=== PATIENT | female | born 1990 | race Caucasian/White ===

== ENCOUNTER 2020-12-16 10:24 | Emergency (ER) | payer OTHER ==
[~2020-12-16] VITALS: Ht 152.4 cm; Wt 81.6 kg
[2020-12-16 10:24] VITALS: BP 112/66
--- NOTE | 2020-12-16 10:24 | NUR ---
OSIRIS WOOD FROM HOME
--- NOTE | 2020-12-16 11:17 | NUR ---
PT W/C ASSISTED TO BED 3
--- NOTE | 2020-12-16 11:17 | NUR ---
Patient ambulated to bed 3. RN evaluating the patient at bedside.
--- NOTE | 2020-12-16 11:20 | NUR ---
30 Y/O FEMALE BIBA FROM HOME C/O LOWER BACK PAIN. PT BENT OVER, COUGHED, AND FELT A "POP" AND NOW IS C/O 9/10 LOWER BACK PAIN. DENIES FALLING. PMH:ASTHMA, CHRONIC LOWER BACK PAIN X6 MONTHS NKDA
[2020-12-16] MEDS ORDERED: ONDANSETRON 4 MG/2 ML VIAL IVP ONE (11:40)
[2020-12-16] MEDS ORDERED: fentaNYL citrate 0.05 MG/ML VIAL IVP ONE (11:40)
[2020-12-16] MEDS ORDERED: KETOROLAC 30 MG/ML VIAL IVP ONE (11:40)
[2020-12-16] MEDS ORDERED: NAPR-1717 PO (12:46)
[2020-12-16] MEDS ORDERED: ACET-8386 PO (12:46)
[2020-12-16 13:30] VITALS: BP 112/66
--- NOTE | 2020-12-16 13:31 | NUR ---
Patient discharged with v/s stable. Written and verbal after care instructions given ACUTE BACK PAIN and explained. Patient alert, oriented and verbalized understanding of instructions. Wheel Chair Assisted with to car. All questions addressed prior to discharge. ID band removed. Patient advised to follow up with PMD. Rx of NAPROXEN 500MG PO BID PRN PAIN, AND NORCO 5MG-325MG PO Q6-8H PRN PAIN given. Patient educated on indication of medication including possible reaction and side effects. Opportunity to ask questions provided and answered.
== END 2020-12-16 13:31 | disposition home or self-care (01) ==
LOC: MED 10:24
DX: M54.5 Low back pain (principal); J45.909 Unspecified asthma, uncomplicated; Z79.899 Other long term (current) drug therapy
CPT/HCPCS: 81025; 96374; 96375; 99284; J1885; J2405; J3010

== ENCOUNTER 2023-03-15 11:44 | Emergency (ER) | payer BC, OTHER ==
[~2023-03-15] VITALS: Ht 152.4 cm; Wt 81.6 kg
[~2023-03-15 11:44] MED LIST: ACET-8905 PO; NAPR-1717 PO
[2023-03-15 11:58] VITALS: BP 109/38; PULSE 62; RESP 18; TEMP 98.3; O2SAT 97
[2023-03-15] MEDS ORDERED: DEXAMETHASONE 4 MG/ML VIAL PO ONE (13:00)
[2023-03-15 13:24] LABS: BASOPHILS # (AUTO) 0.1 K/uL (0.00-0.22); BASOPHILS % (AUTO) 0.8 % (0.0-2.0); EOSINOPHILS # (AUTO) 0.4 K/uL (0-0.4); EOSINOPHILS % (AUTO) 3.7 % (0.0-4.0); HEMATOCRIT 39.8 % (36-48); HEMOGLOBIN 13.6 g/dL (12.0-16.0); LYMPHOCYTES # (AUTO) 3.2 K/uL (2.5-16.5); LYMPHOCYTES % (AUTO) 33.7 % (20.5-51.1); MEAN CORPUSCULAR HEMOGLOBIN 31 pg (27-31); MEAN CORPUSCULAR HGB CONC 34 g/dL (33-37); MEAN CORPUSCULAR VOLUME 90.6 fL (80-94); MONOCYTES # (AUTO) 0.5 K/uL (0.8-1.0); MONOCYTES % (AUTO) 4.7 % (1.7-9.3); NEUTROPHILS # (AUTO) 5.5 K/uL (1.8-7.7); NEUTROPHILS % (AUTO) 57.1 % (42.2-75.2); PLATELET COUNT (AUTO) 250 K/uL (140-450); RED BLOOD CELL COUNT(AUTO) 4.39 MIL/uL (4.20-5.40); RED CELL DISTRIBUTION WIDTH 13.4 % (11.6-13.7); WHITE BLOOD COUNT (AUTO) 9.6 K/uL (4.8-10.8)
[2023-03-15 13:40] LABS: ALANINE AMINOTRANSFERASE 26 U/L (12-78); ALBUMIN 3.7 g/dL (3.4-5.0); ALKALINE PHOSPHATASE 55 U/L (50-136); ASPARTATE AMINOTRANSFERASE 12 U/L (15-37); CALCIUM 8.9 mg/dL (8.5-10.1); CARBON DIOXIDE 30.3 mmol/L (21-32); CHLORIDE 104 mmol/L (98-107); CREATININE 0.8 mg/dL (0.6-1.3); GFR ARICAN-AMERICAN 106 mL/min (>90); GFR NON ARICAN-AMERICAN 87 mL/min (>90); GLUCOSE 97 mg/dL (74-106); POTASSIUM 4.3 mmol/L (3.5-5.1); SODIUM SERUM 141 mmol/L (136-145); TOTAL BILIRUBIN 0.3 mg/dL (0.0-1.0); TOTAL PROTEIN, SERUM 7.4 g/dL (6.4-8.2); UREA NITROGEN, BLOOD 11 mg/dL (7-18)
[2023-03-15] MEDS ORDERED: BUDE1AER2 IH (13:58)
[2023-03-15 14:50] VITALS: BP 116/45; PULSE 68; RESP 18; TEMP 98.3; O2SAT 97
== END 2023-03-15 14:52 | disposition home or self-care (01) ==
LOC: MED 11:44
DX: R07.9 Chest pain, unspecified (principal); R06.02 Shortness of breath; J45.909 Unspecified asthma, uncomplicated; Z79.899 Other long term (current) drug therapy; Z79.1 Long term (current) use of non-steroidal anti-inflammatories (NSAID)
CPT/HCPCS: 36415; 71045; 80053; 84484; 85025; 85379; 93005; 99285; J1100

== ENCOUNTER 2023-06-07 09:14 | Emergency (ER) | payer BC, OTHER ==
[~2023-06-07] VITALS: Ht 167.6 cm; Wt 81.6 kg
[~2023-06-07 09:14] MED LIST changes: +BUDE1AER2 IH
[2023-06-07 09:21] VITALS: BP 110/62; PULSE 59; RESP 18; TEMP 97.6; O2SAT 98
[2023-06-07] MEDS ORDERED: predniSONE 20 MG TAB PO ONE (09:40)
[2023-06-07] MEDS ORDERED: ALBUTEROL SULFATE/IPRATROPIU 3 ML SOL IH ONE (09:40)
[2023-06-07 09:54] VITALS: O2SAT 100
[2023-06-07 09:58] VITALS: PULSE 67; RESP 18; O2SAT 98
[2023-06-07] MEDS ORDERED: IBUPROFEN 600 MG TAB PO ONE (10:25)
[2023-06-07] MEDS ORDERED: CYCL-711 PO (10:27)
[2023-06-07] MEDS ORDERED: PRED20TA5 PO (10:27)
[2023-06-07] MEDS ORDERED: BUDE1AER2 IH (10:27)
[2023-06-07 11:08] VITALS: BP 121/62; PULSE 60; RESP 18; TEMP 97.6; O2SAT 99
[2023-06-07] MEDS ORDERED: PRON INH (11:19)
== END 2023-06-07 11:08 | disposition home or self-care (01) ==
LOC: MED 09:14
DX: S16.1XXA Strain of muscle, fascia and tendon at neck level, initial encounter (principal); J98.01 Acute bronchospasm; X58.XXXA Exposure to other specified factors, initial encounter; Y93.89 Activity, other specified; Y92.89 Other specified places as the place of occurrence of the external cause; Y99.8 Other external cause status
CPT/HCPCS: 94640; 99283; J7512

== ENCOUNTER 2023-09-29 19:32 | Emergency (ER) | payer BC, OTHER ==
[~2023-09-29] VITALS: Ht 152.4 cm; Wt 79.4 kg
[~2023-09-29 19:32] MED LIST changes: +CYCL-711 PO; +PRED20TA5 PO; +PRON INH
[2023-09-29 19:55] VITALS: BP 111/52; PULSE 64; RESP 16; TEMP 97.8; O2SAT 98
[2023-09-29 20:38] VITALS: O2SAT 98
[2023-09-29] MEDS ORDERED: IBUP-2218 PO (20:47)
[2023-09-29] MEDS ORDERED: DICL20GE TP (20:47)
[2023-09-29] MEDS: KETOROLAC 30 MG/ML VIAL IM ONE (20:57)
[2023-09-29] MEDS: LIDOCAINE 5% 1 EA PATCH TP ONE (20:58)
== END 2023-09-29 21:02 | disposition home or self-care (01) ==
LOC: MED 19:32
DX: M54.31 Sciatica, right side (principal); Z79.899 Other long term (current) drug therapy
CPT/HCPCS: 81025; 96372; 99283; J1885